=== PATIENT | female | born 1990 | race Caucasian/White ===

== ENCOUNTER 2019-03-31 11:20 | Inpatient (IN) | payer OTHER ==
[~2019-03-31] VITALS: Ht 170.2 cm; Wt 89.4 kg
[2019-03-31 11:24] VITALS: BP 133/93
--- NOTE | 2019-03-31 11:29 | NUR ---
PT AMB TO LOBBY WITH VOMIT BAG, STEADY GAIT
--- NOTE | 2019-03-31 11:41 | NUR ---
Patient ambulated to bed 11
--- NOTE | 2019-03-31 11:48 | NUR ---
PT BIB SELF TO THE ED WITH THE CHIEF C/O ABDOMINAL PAIN STARTED THIS MORNING. PT REPORTS NAUSEATED, VOMITED X2 AND WATERY DIARRHEA X1. NO BLOOD IN VOMIT OR DIARRHEA. NO MEDS TAKEN FOR PAIN. DENIES RECENT FEVER. STATES LMP FIRST WEEK OF OCTOBER. PT ON IUD. STATES PAIN OF 10/10.
[2019-03-31] MEDS ORDERED: NACL 0.9% 1,000 ML IV SCH (12:07)
[2019-03-31] MEDS ORDERED: ONDANSETRON 4 MG/2 ML VIAL IVP ONE (12:10)
--- NOTE | 2019-03-31 12:12 | NUR ---
Roseanne parham in [facility] - 03/31/19 at [address] Jimenez evaluating patient at bedside.
--- NOTE | 2019-03-31 12:27 | NUR ---
Dr. Valdes evaluating patient at bedside.
[2019-03-31 12:31] LABS: APPEARANCE,URINE CLEAR (CLEAR); BILIRUBIN,URINE NEGATIVE (NEGATIVE); BLOOD, URINE NEGATIVE (NEGATIVE); COLOR,URINE YELLOW (YELLOW); LEUKOCYTE ESTERASE ,URINE TRACE (NEGATIVE); NITRITE, URINE NEGATIVE (NEGATIVE); UGLUCOSE NEGATIVE (NEGATIVE)
[2019-03-31 12:31] LABS: BASOPHILS % (AUTO) 0.2 % (0.0-2.0); EOSINOPHILS % (AUTO) 0.1 % (0.0-4.0); HEMATOCRIT 40.4 % (36-48); HEMOGLOBIN 13.4 g/dL (12.0-16.0); LYMPHOCYTES # (AUTO) 0.6 K/uL (2.5-16.5); LYMPHOCYTES % (AUTO) 4.4 % (20.5-51.1); MEAN CORPUSCULAR HEMOGLOBIN 29 pg (27-31); MEAN CORPUSCULAR HGB CONC 33 g/dL (33-37); MEAN CORPUSCULAR VOLUME 87.1 fL (80-94); MONOCYTES # (AUTO) 0.3 K/uL (0.8-1.0); MONOCYTES % (AUTO) 2.6 % (1.7-9.3); NEUTROPHILS # (AUTO) 11.9 K/uL (1.8-7.7); NEUTROPHILS % (AUTO) 92.7 % (42.2-75.2); PLATELET COUNT (AUTO) 283 K/uL (140-450); RED BLOOD CELL COUNT(AUTO) 4.63 MIL/uL (4.20-5.40); RED CELL DISTRIBUTION WIDTH 15.6 % (11.6-13.7); WHITE BLOOD COUNT (AUTO) 12.9 K/uL (4.8-10.8)
[2019-03-31] MEDS ORDERED: MORPHINE SULFATE 10 MG/ML VIAL IVP ONE (12:35)
[2019-03-31] MEDS ORDERED: KETOROLAC 15 MG/ML VIAL IVP ONE (12:35)
[2019-03-31 12:37] LABS: ANION GAP 11.1 (8-16); CARBON DIOXIDE 26.3 mmol/L (21-32); CREATININE 0.7 mg/dL (0.6-1.3); POTASSIUM 3.4 mmol/L (3.5-5.1)
[2019-03-31 12:38] LABS: RBC,URINE NONE SEEN /HPF (0-5)
[2019-03-31 12:42] LABS: ALBUMIN 2.4 g/dL (3.4-5.0); TOTAL BILIRUBIN 0.4 mg/dL (0.0-1.0)
--- NOTE | 2019-03-31 13:20 | NUR ---
PULLED TORADOL 15 MG IV; DROPPED MEDICATION ON FLOOR; REPULLED TORADOL 15MG IV.
--- NOTE | 2019-03-31 14:49 | NUR ---
PT VERBALIZED FEELING BETTER. DENIES PAIN. DENIES NAUSEA/ VOMITING. US TECH AT BEDSIDE.
--- NOTE | 2019-03-31 15:49 | NUR ---
PT BEING RE-EVALUATED BY HOMA MOHAMUD AT THIS TIME.
--- NOTE | 2019-03-31 16:17 | NUR ---
Dr. Payne evaluating patient at bedside.
--- NOTE | 2019-03-31 16:46 | NUR ---
PT BEING EVALUATED BY OB DOCTOR AT THIS TIME.
--- NOTE | 2019-03-31 16:46 | NUR ---
Dr. Payne evaluating patient at bedside.
--- NOTE | 2019-03-31 17:50 | NUR ---
Patient will be admitted to care of Dr. Payne. Admited to L&D. Transferred to room 4 via rney on stable condition. Belongings list completed. Report to YOUNG Sultana.
[2019-03-31] MEDS ORDERED: LACTATED RINGERS 1,000 ML IV SCH (18:10)
[2019-03-31 18:20] LABS: BARBITURATE, URINE NEG. ng/ml (NEG <=200); BENZODIAZEPINE, URINE NEG. ng/mL (NEG <=200); CANNABINOID, URINE NEG. ng/mL (NEG <=50); COCAINE, URINE NEG. ng/mL (NEG <=300); OPIATE, URINE NEG. ng/mL (NEG <=2000); PHENCYCLIDINE SCREEN,URINE NEG. ng/mL (NEG <=25)
[2019-03-31] MEDS ORDERED: ONDANSETRON 4 MG/2 ML VIAL IVP PRN (18:25)
[2019-03-31 18:45] VITALS: BP 124/69
[2019-04-01 07:12] LABS: HEPATITIS B SURFACE ANTIGEN Negative (Negative)
[2019-04-01 08:31] LABS: BASOPHILS % (AUTO) 0.2 % (0.0-2.0); EOSINOPHILS % (AUTO) 0.7 % (0.0-4.0); HEMATOCRIT 36.5 % (36-48); HEMOGLOBIN 12.2 g/dL (12.0-16.0); LYMPHOCYTES # (AUTO) 0.7 K/uL (2.5-16.5); LYMPHOCYTES % (AUTO) 11.6 % (20.5-51.1); MEAN CORPUSCULAR HEMOGLOBIN 29 pg (27-31); MEAN CORPUSCULAR HGB CONC 34 g/dL (33-37); MEAN CORPUSCULAR VOLUME 87.2 fL (80-94); MONOCYTES # (AUTO) 0.4 K/uL (0.8-1.0); MONOCYTES % (AUTO) 6.9 % (1.7-9.3); NEUTROPHILS # (AUTO) 4.8 K/uL (1.8-7.7); NEUTROPHILS % (AUTO) 80.6 % (42.2-75.2); PLATELET COUNT (AUTO) 232 K/uL (140-450); RED BLOOD CELL COUNT(AUTO) 4.19 MIL/uL (4.20-5.40); RED CELL DISTRIBUTION WIDTH 15.5 % (11.6-13.7)
[2019-04-01 08:48] LABS: ALBUMIN 1.8 g/dL (3.4-5.0); ANION GAP 11.3 (8-16); CARBON DIOXIDE 25.8 mmol/L (21-32); CREATININE 0.6 mg/dL (0.6-1.3); POTASSIUM 3.1 mmol/L (3.5-5.1); TOTAL BILIRUBIN 0.3 mg/dL (0.0-1.0)
--- NOTE | 2019-04-11 13:25 | NUR ---
NOTED ORDER OF MORPHINE 6MG, WASTED 4 MG 0.4 ML OF MORPHINE.
== END 2019-04-01 13:45 | disposition home or self-care (01) | DRG 566 ==
LOC: MED 11:20 → MLD 17:01 → OBSVTOIN 18:47
PROVIDERS: ADMIT Obstetrics & Gynecology; ATTEND Obstetrics & Gynecology
DX: O46.92 Antepartum hemorrhage, unspecified, second trimester (principal); O99.322 Drug use complicating pregnancy, second trimester; Z3A.27 27 weeks gestation of pregnancy; F15.90 Other stimulant use, unspecified, uncomplicated
CPT/HCPCS: 96361; 96374; 96375; 99285; G0378; 36415; 76700; 76805; 80053; 80305; 81001; 81025; 83690; 84702; 85025; 85384; 86592; 86762; 86886; 86900; 86901; 87086; 87340; J1885; J2270; J2405; J7120; Q0092